=== PATIENT | female | born 1950 | race Caucasian/White ===

== ENCOUNTER 2016-10-23 09:44 | Emergency (ER) | payer MEDICARE, MEDICAID ==
[2016-10-23] MEDS ORDERED: ASPIRIN 81 MG TAB.CHEW PO ONE (10:00)
[2016-10-23 10:25] LABS: Hematocrit 34.7 % (37.0-47.0); Hemoglobin 11.5 gm/dL (12.5-16.0); Mean Cell Volume 83.6 fl (78-100); Mean Corpuscular Hemoglobin 27.7 pg (27-31); Mean Corpuscular Hgb Conc 33.1 g/dl (32-36); Mean Platelet Volume 7.8 fl (6.0-9.5); Platelet Count 155 K/mm3 (150-450); Red Blood Count 4.15 M/mm3 (4.2-5.4); Red Cell Distribution Width 13.8 % (11.5-14.0); White Blood Count 5.4 K/mm3 (4.0-10.5)
--- NOTE | 2016-10-23 10:31 | ERNOTE ---
Chest Pain/Cardiac HPI Date of Service: 10/23/16 Chief Complaint: Chest Pain Time Seen by Provider: 10/23/16 10:23 Source: patient, family Exam Limitations: no limitations Immunizations: IMMUNIZATION HX Immunizations Up to Date No History of Influenza Vaccine No Hx Pneumococcal Vaccination No Allergies/Adverse Reactions: Allergies No Known Allergies Allergy (Verified 10/23/16 10:32) Home Medications: HOME MEDICATIONS Duloxetine HCl [Cymbalta] 90 mg PO DAILY 03/29/13 [Last Taken Unknown] Lisinopril 2.5 mg PO DAILY 03/29/13 [Last Taken Unknown] Omeprazole [Prilosec] 40 mg PO DAILY 03/29/13 [Last Taken Unknown] Atorvastatin Calcium [Lipitor] 20 mg PO DAILY 09/18/15 [Last Taken Unknown] Hydroxychloroquine Sulfate [Plaquenil] 200 mg PO DAILY 09/18/15 [Last Taken Unknown] metFORMIN HCL [Glucophage] 1,000 mg PO BIDWM 09/18/15 [Last Taken Unknown] Citalopram Hydrobromide [Citalopram HBr] 20 mg PO DAILY 03/05/16 [Last Taken Unknown] Cetirizine HCl [Zyrtec] 10 mg PO DAILY 10/23/16 [Last Taken Unknown] Narrative: 66 y/o female to ED with her family for chest pain that began approx an hour ago while she was watching TV. She took 1 ntg SL and the pain was relieved. She has not had any further pain. She reports having palpitations intermittently for the past couple of weeks. She has a history of Afib. She underwent an ablation for this and has had no further documented Afib. She is not anticoagulated. She has been having sinus congestion for several days and has taken an OTC "mucus relief" medication. She had not taken this today. Date (Duration): 10/23/16 Time (Timing): 09:30 Timing: resolved prior to arrival, gone now Severity/Quality: severe Location: substernal Chest Pain Radiation: jaw, back Activities at Onset: rest Modifying Factors - Improves: Present: nitroglycerin Nitro Today/Relief: 0.4 mg x 1, provided at home, complete relief Aspirin Treatment Today: 81 mg x 4, provided by ED Associated Symptoms: Present: headache, diaphoresis, palpitations. Absent: dizziness, syncope, cough, shortness of breath, fever/chills, heartburn, nausea , vomiting, abdominal pain Prior Chest Pain/Cardiac Workup: Reports: prior chest pain, cardiac cath, echocardiogram, stress test. Denies: heart attack Prior Treatment: Denies: recently seen Review of Systems - Review of Systems Constitutional: Present: recent illness. Absent: fever, chills EYE: Present: no symptoms reported ENT: Present: nose congestion. Absent: ear pain, sore throat Respiratory: Absent: shortness of breath, cough Cardiology: Present: chest pain, palpitations. Absent: syncope, edema Gastrointestinal/Abdominal: Absent: nausea, vomiting, abdominal pain Genitourinary: Present: no symptoms reported Musculoskeletal: Absent: muscle pain, neck pain Skin: Absent: rash, lesions Neurological: Present: headache. Absent: dizziness/light-headedness Endocrine: Present: no symptoms reported Hematologic/Lymphatic: Present: no symptoms reported Psych: Absent: anxiety, depressed - Patient's Past Medical History Patient History - Medical: Anxiety, Arthritis, Diabetes Type 2, Depression, Fibromyalgia, GERD, Migraines, Obesity, Rheumatoid Arthritis Patient History - Cardiac/Respiratory: Atrial Fibrillation, Aneurysm, Hypertension, Hyperlipidemia Patient History - Cancer: Skin Patient History - Surgical Procedures: Appendectomy, Cholecystectomy, , EGD - with esophageal dilatation, Hysterectomy, Other - Breast - lumpectomy, Cardiac cath normal 2009 Patient History - Other: None LMP (females 10-50): Menopausal - Family History Mother Family History - Medical: Family History - Cardiac/Respiratory: Aneurysm Father Family History - Medical: Family History - Cardiac/Respiratory: Myocardial Infarction - Social History Living Situations: alone Abuse History: No History of abuse Psych History: No pertinent hx, Hx of Anxiety, Hx of Depression Smoking Status: Never smoker Alcohol Use: none Drug Use: none - Immunizations Immunizations Up to Date: No Hx Pneumococcal Vaccination: No History of Influenza Vaccine: No Physical Exam - Physical Exam General Appearance: Present: wd/wn, alert, no apparent distress Eye Exam: Normal inspection: bilateral Ears, Nose, Throat: Present: normal except -, nasal congestion. Absent: sinus pain/drainage, pharyngeal erythema Neck: Present: normal inspection, nontender, supple Respiratory: Present: no respiratory distress, normal breath sounds, no accessory muscle use, chest nontender, lungs clear Cardiovascular/Chest: Present: normal peripheral pulses, irregularly irregular, systolic murmur Extremity Exam: Present: normal inspection, no edema Neurological Exam: Present: alert, oriented, normal mood/affect, no motor/ sensory deficits Skin Exam: Present: normal color, warm/dry ED Progress - Results and Orders Patient's Lab Results:: I have reviewed the patient's lab results. Results and Orders: Negative repeat troponin - Vital Signs Patient's Vital Signs:: I have reviewed the patient's vital signs. - EKG EKG: NSR EKG read: Interp. by me EKG Comments: 1426 - repeat EKG show SR with sinus arrhythmia, no significant change from initial - X-Ray X-Ray #1 X-Ray: chest Interpretation: Reviewed by me X-ray Comments: Technique: PA and lateral views of the chest are compared to prior dated April 12, 2016 Findings: Diffuse hyperinflation of the lungs bilaterally with flattening of the hemidiaphragm. Scattered calcified granulomas. The lungs are clear bilaterally. There is no consolidation, pleural effusion or pneumothorax. Cardiac silhouette and pulmonary vasculature are normal. The osseous structures demonstrate degenerative changes of the spine and shoulders. IMPRESSION: NO ACUTE CARDIOPULMONARY ABNORMALITY IDENTIFIED. Electronically signed by Gilmer Goodson D.O.. - Progress/Reassessment Progress:: Pain free at discharge Progress Note-Subjective: 10/23/16 12:02 Dr. Erwin contacted regarding admitting to observation for serial troponin/ EKGs, will keep patient in the ED and repeat troponin and EKG 4 hours after the first set per her recommendation. Patient remains asymptomatic. 10/23/16 14:27 Waiting for repeat troponin result, patient denies any further pain. Departure - Departure Clinical Impression: Chest pain of uncertain etiology Disposition: Home Follow Up Needed Condition: Good Instructions: Chest Pain Observation Additional Instructions: Continue your current medications Take nitro and 4 baby aspirin if your pain returns Return to ER if pain returns Contact Dr. Leigh next week for follow up Referrals: Derek Leigh MD [Staff Physician] -
[2016-10-23 10:34] LABS: INR 1.01 INR (0.90-1.10); Partial Thrombolplastin Time 24.4 Seconds (24-32); Prothrombin Time (Patient) 10.5 Seconds (9.4-11.4)
[2016-10-23 10:42] LABS: ALT 44 U/L (19-67); AST 29 U/L (0-48); Albumin * 3.6 gm/dl (3.4-5.0); Alkaline Phosphatase * 60 U/L (50-170); Anion Gap 15.7 mmol/L (6.8-13.8); BUN/Creatinine Ratio 12.9 (9.0-21.6); Bilirubin, Total 0.4 mg/dL (0.0-1.1); Blood Urea Nitrogen 11 mg/dL (3-23); Ca. Corrected For Albumin 8.6 mg/dL (8.4-10.2); Calcium * 8.6 mg/dL (7.9-10.9); Chloride 102 mmol/L (97-106); Glucose * 193 mg/dL (70-110); Potassium 3.7 mmol/L (3.4-4.6); Sodium 142 mmol/L (132-142); Troponin I Less than 0.017 ng/ml (0.00-0.10)
--- OUTSIDE RECORDS SUMMARY | 2016-10-23 11:12 | XMS REPORT | Continuity of Care Document ---
:1950 Author Organization [facility] ([facility]) Address [address] [place] [address] Phone [phone] Care Team Providers Name Role Phone Tanya Srinivasan Primary Care Provider [phone] Source Comments This disclosure is being made pursuant to the Care Everywhere program, applicable federal and state laws, and may not contain all informaitonavailable regarding this patient.[facility] ([facility]) Active Allergies and Adverse Reactions Allergen Noted Date Severity Reactions Comments Codeine Nausea & Vomiting Current Medications Prescription Sig. Disp. Refills Start Date End Date Status DULoxetine (CYMBALTA) 60 Take 60 mg by mouth Active mg capsule daily. omeprazole 20 mg Take 20 mg by mouth Active extended release capsule 2 times daily. diclofenac (VOLTAREN) 1 apply 4 g topically 100 g 2 01/29/2014 Active % topical gel 4 times daily. Indications: OSTEOARTHRITIS hydroxychloroquine 200 Take 1 Tab by mouth 60 Tab 3 07/26/2014 Active mg tablet 2 times daily. Indications: inflammatory osteoarthritis METFORMIN 500 mg tablet 1,000 mg 2 times 1 12/01/2014 Active daily. FLUTICASONE 50 as needed. 12/18/2014 Active mcg/Actuation nasal spray NITROSTAT 0.4 mg SL every 5 minutes as 1 08/20/2015 Active tablet needed. atorvastatin 20 mg Take 20 mg by mouth 3 08/20/2016 Active tablet daily. ESTRACE 0.01 % vaginal INSERT 1 GRAM BY 11 08/21/2016 Active cream VAGINAL ROUTE 2 TIMES PER WEEK glimepiride 1 mg tablet Take 3 mg by mouth 3 3 08/20/2016 Active times daily. lisinopril 2.5 mg tablet Take 2.5 mg by mouth 3 08/20/2016 Active daily. promethazine 25 mg TK 1/2 T PO Q 6 H 0 06/10/2016 Active tablet PRN Active Problems Problem Noted Date S/P ablation of atrial fibrillation 07/31/2016 PONV (postoperative nausea and vomiting) 05/24/2016 PAF (paroxysmal atrial fibrillation) 02/03/2016 Erosive osteoarthritis of hand 01/29/2014 Cataracts, both eyes 05/12/2012 Type II or unspecified type diabetes mellitus without mention of 05/12/2012 complication, not stated as uncontrolled Unspecified sleep apnea 05/20/2008 Dizziness and giddiness 01/30/2008 Pure hypercholesterolemia 12/20/2005 Essential hypertension 12/20/2005 Chest pain, unspecified 12/20/2005 Adjustment disorder with anxiety 06/07/2005 Esophageal reflux 06/07/2005 Hyperlipidemia Palpitation Most Recent Encounters Date Type Specialty Providers Description 08/30/2016 Office Visit [facility], Dx: S/P ablation of MD atrial fibrillation (Primary Dx) 08/10/2016 Office Visit [facility], Chief Comp: Patient MD Reported Reason For Visit 08/03/2016 Office Visit [facility], Dx: PAF ( paroxysmal MD atrial fibrillation) (Primary Dx) Immunizations Name Dates Previously Given Next Due Influenza, unspecified 05/20/2008,06/01/2007 Social History Tobacco Use Types Packs/Day Years Used Date Never Smoker Alcohol Use Drinks/Week oz/Week Comments No Last Filed Vital Signs Vital Sign Reading Time Taken Blood Pressure 144/72 08/30/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 Pulse 83 08/30/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 Temperature 36.7 C (98.1 F) 05/31/2016 12:45 PM CDT Respiratory Rate 14 05/31/2016 7:02 AM CDT Height 1.702 m (5' 7.01") 08/30/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 Weight 76.839 kg (169 lb 6.4 oz) 08/30/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 Body Mass Index 26.53 08/30/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 Oxygen Saturation 95% 05/31/2016 4:31 PM CDT Plan of Care Date Type Specialty Providers Description 11/09/2016 Wait List [facility] Maintenance Due Date Last Done Comments Hepatitis B Vaccine (1 of 3 - 1950 Primary Series) Tdap Vaccine 02/09/1960 DIABETIC: Microalbumin 1967 Td Vaccine 1967 Mammogram 1989 Colonoscopy 1999 DIABETIC: Hemoglobin A1C 11/17/2008 05/20/2008, 01/30/2008, 10/11/2005 Zoster Vaccine 2009 DIABETIC: Cholesterol 04/01/2009 04/01/2008, Additional history exists 06/01/2007, 12/01/2006 Diabetic: Hdl 04/01/2009 04/01/2008, Additional history exists 06/01/2007, 12/01/2006 Diabetic: Ldl 04/01/2009 04/01/2008, Additional history exists 06/01/2007, 12/01/2006 DIABETIC: Triglycerides 04/01/2009 04/01/2008, Additional history exists 06/01/2007, 12/01/2006 DIABETIC: Foot Exam 05/31/2012 DIABETIC: Retinal Eye Exam 05/31/2012 Osteoporosis Screening (DXA 2014 Bone Density) Pneumococcal Vaccine (1 of 2 2014 - PCV13) Influenza Vaccine: Seasonal 03/22/2016 05/20/2008, (#1) 06/01/2007 HCV Screening Completed 01/20/2006 Results from Last 3 Months Not on file
--- OUTSIDE RECORDS SUMMARY | 2016-10-23 11:12 | XMS REPORT | Continuity of Care Document ---
:1950 Author Organization [facility] [place] [address] Care Team Providers Name Role Phone Provider, None Per Patient Primary Care Provider Unavailable Source Comments This disclosure is being made pursuant to the [employer] program and maynot contain all information available regarding this patient.[facility] Active Allergies and Adverse Reactions Not on File Current Medications Be aware that medications may not be up to date as of this document. Alwaysverify current medications with the patient. 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
[2016-10-23] MEDS ORDERED: ASPIRIN 81 MG TAB.CHEW ONE (13:05)
[2016-10-23 14:13] VITALS: BP 148/83
== END 2016-10-23 15:07 | disposition home or self-care (01) ==
LOC: ER 09:44
DX: R07.9 Chest pain, unspecified (principal); K21.9 Gastro-esophageal reflux disease without esophagitis; E11.9 Type 2 diabetes mellitus without complications; I10 Essential (primary) hypertension; M06.9 Rheumatoid arthritis, unspecified; F41.8 Other specified anxiety disorders; E78.5 Hyperlipidemia, unspecified

== ENCOUNTER 2017-05-27 16:40 | Emergency (ER) | payer MEDICAID, MEDICARE ==
[2017-05-27] MEDS ORDERED: ONDANSETRON 4 MG TAB.RAPDIS PO ONE (17:01)
--- NOTE | 2017-05-27 17:02 | ERNOTE ---
Dizziness ER Record Date of Service: 05/27/17 Presenting Symptoms: dizziness Time Seen by Provider: 05/27/17 16:52 Source: patient, RN notes reviewed, old records Exam Limitations: no limitations Immunizations: IMMUNIZATION HX Immunizations Up to Date No History of Influenza Vaccine No Hx Pneumococcal Vaccination No Allergies/Adverse Reactions: Allergies Allergy/AdvReac Type Severity Reaction Status Date / Time No Known Allergies Allergy Verified 05/27/17 16:49 Home Medications: HOME MEDICATIONS Duloxetine HCl [Cymbalta] 90 mg PO DAILY 03/29/13 [Last Taken Unknown] Lisinopril 2.5 mg PO DAILY 03/29/13 [Last Taken Unknown] Omeprazole [Prilosec] 40 mg PO DAILY 03/29/13 [Last Taken Unknown] Atorvastatin Calcium [Lipitor] 20 mg PO DAILY 09/18/15 [Last Taken Unknown] Hydroxychloroquine Sulfate [Plaquenil] 200 mg PO DAILY 09/18/15 [Last Taken Unknown] metFORMIN HCL [Glucophage] 1,000 mg PO BIDWM 09/18/15 [Last Taken Unknown] Citalopram Hydrobromide [Citalopram HBr] 20 mg PO DAILY 03/05/16 [Last Taken Unknown] Apixaban [Eliquis] 5 mg PO BID #60 tablet 05/27/17 [Last Taken Unknown] Meclizine HCl 25 - 50 mg PO Q8H PRN #24 tablet 05/27/17 [Last Taken Unknown] - History of Present Illness Narrative: Florence is a 67 year old female sent to the ED from the walk in clinic for dizziness. This began last evening around the time she was getting ready to go to bed. She also has nausea that is worse with movement. She has vomited once today. She has not had diarrhea today, but has chronic diarrhea that she is seeing gastroenterology for. She also reports a headache. She denies any chest pain or shortness of breath. She took Excedrin earlier today for her headache with some improvement. She also took Meclizine for her dizziness without any change. She states she has had vertigo in the past and that her current symptoms feel different. She has a history of atrial fibrillation and underwent an ablation approximately a year ago. The ablation was successful and she was able to discontinue her anticoagulant. She reports being symptomatic with palpations when she would go in and out of it. She denies any palpations recently. Date (Duration): 05/26/17 Timing and Duration: sudden onset, still present, lasted greater than 3 hrs Noted on awakening:: Yes Associated Symptoms: Present: nausea, vomiting, headache, sense of confusion. Absent: hearing loss, ringing/roaring in ear, ear pain, weakness, numbness, sweating Sense of movement: Present: vague Decreased ability to stand/walk:: Present: off balance Usually:: Present: walks w/o assistance Modifying Factors - (Improves): Reports: other - rest Modifying Factors - (Worsens): Reports: changing position, movement of head Prior Treament: Reports: recently seen, similar symptoms before Review of Systems - Review of Systems Constitutional: Absent: recent illness, fever, chills EYE: Absent: blurred vision, vision changes ENT: Absent: ear pain, nose congestion, sore throat Respiratory: Absent: shortness of breath, cough Cardiology: Absent: chest pain, palpitations, syncope Gastrointestinal/Abdominal: Present: nausea, vomiting. Absent: abdominal pain Genitourinary: Present: no symptoms reported Musculoskeletal: Present: muscle pain, neck pain Skin: Absent: rash, lesions Neurological: Present: headache, dizziness/light-headedness Endocrine: Present: no symptoms reported Hematologic/Lymphatic: Present: no symptoms reported Psych: Present: no symptoms reported - Patient's Past Medical History Patient History - Medical: Anxiety, Arthritis, Diabetes Type 2, Depression, Fibromyalgia, GERD, Migraines, Obesity, Rheumatoid Arthritis Patient History - Cardiac/Respiratory: Atrial Fibrillation, Aneurysm, Hypertension, Hyperlipidemia Patient History - Cancer: Skin Patient History - Surgical Procedures: Appendectomy, Cholecystectomy, , EGD, Hysterectomy, Other - Cardiac ablation Patient History - Other: None LMP (females 10-50): Menopausal - Family History Mother Family History - Medical: Family History - Cardiac/Respiratory: Aneurysm Father Family History - Medical: Family History - Cardiac/Respiratory: Myocardial Infarction - Social History Living Situations: home Abuse History: No History of abuse Psych History: No pertinent hx, Hx of Anxiety, Hx of Depression Smoking Status: Never smoker Alcohol Use: none Drug Use: none - Immunizations Immunizations Up to Date: No Hx Pneumococcal Vaccination: No History of Influenza Vaccine: No Physical Exam - Physical Exam General Appearance: Present: wd/wn, alert, mild distress, anxious Head Exam: Present: normal inspection, no evidence of injury Eye Exam: Normal inspection: bilateral, PERRL: bilateral, EOMI: bilateral Ears, Nose, Throat: Present: normal ENT inspection, normal pharynx Neck: Present: normal inspection, nontender, supple Respiratory: Present: no respiratory distress, normal breath sounds, no accessory muscle use, lungs clear Cardiovascular/Chest: Present: no murmur, normal peripheral pulses, irregularly irregular Peripheral Pulses: N=norm/S=strong/W=weak/B=bound/A=absent: Dorsalis-pedis (R): Normal, Dorsalis-pedis (L): Normal Gastrointestinal/Abdominal: Present: normal bowel sounds, nontender, nondistended, soft Extremity Exam: Present: normal inspection, normal range of motion, no edema Neurological Exam: Present: alert, oriented, normal mood/affect, no motor/ sensory deficits Skin Exam: Present: warm/dry, pallor ED Progress - Results and Orders Patient's Lab Results:: I have reviewed the patient's lab results. - Vital Signs Patient's Vital Signs:: I have reviewed the patient's vital signs. Vital Signs: Vital Signs 05/27/17 05/27/17 16:46 16:51 Temperature 36.2 C L Pulse Rate 74 80 Respiratory 12 12 Rate Blood Pressure 181/98 173/92 O2 Sat by Pulse 95 97 Oximetry - EKG EKG: atrial fibrillation, RBBB, changed from - 10/23/16 EKG read: Reviewed by me EKG Comments: Initial EKG at 1702 showed atrial fib, repeat at 1732 showed sinus rhythm with sinus arrhythmia similar to her previous on 10/23/16 - Progress/Reassessment Chief Complaint: Dizziness Progress:: Improved Progress Note-Subjective: 05/27/17 18:19 Dizziness improved shortly after arrival while patient was sitting up on cart. Zofran given for nausea, which resolved. Monitor showed atrial fib at times, and then sinus arrhythmia at times, and even a brief period of atrial flutter - all in the 70's to 80's. Dizziness again became worse with ambulation to the restroom during which the patient remained in sinus rhythm. Orthostatics were not diagnostic, with her blood pressure dropping but her heart rate remaining in the 70's and 80's. Her dizziness during the procedure was the worst when she was supine. Cold caloric test positive on the right with a rapid onset of severe vertigo and nystagmus was observed. Meclizine ordered. Remains in sinus rhythm with HR of 73 currently. 05/27/17 19:09 Dizziness improved with Meclizine. Cardiology at [facility] contacted regarding intermittent atrial fib/flutter, recommended starting Eliquis or Coumadin. Rx for Eliquis as this is what the patient was taking in the past. Patient agreeable to contacting Dr. Marquez on Tuesday for f/u of her a fib. Her vertigo resolved spontaneously after a few days when she experienced it in the past. Discussed f/u with her PCP if it persists as she may need vestibular rehab. Departure Clinical Impression: Atrial fib/flutter, transient, Vertigo - Departure Disposition: Home Follow Up Needed Condition: Good Instructions: Vertigo, [id number], Atrial Fibrillation, [id number] Additional Instructions: Contact Dr. Marquez on Tuesday for follow up If vertigo has not improved, see Dr. Leigh - you may need physical therapy Return to ER if symptoms worsen Referrals: Derek Leigh MD [Primary Care Provider] - Prescriptions: Apixaban [Eliquis] 5 mg PO BID #60 tablet Meclizine HCl 25 - 50 mg PO Q8H PRN #24 tablet PRN Reason: Vertigo
[2017-05-27] MEDS ORDERED: ONDANSETRON 4 MG TAB.RAPDIS ONE (17:09)
[2017-05-27 17:15] LABS: Hematocrit 36.1 % (37.0-47.0); Hemoglobin 11.9 gm/dL (12.5-16.0); Mean Corpuscular Hemoglobin 27.4 pg (27-31); Neutrophil # 3.3 K/mm3 (1.3-6.0); Platelet Count 192 K/mm3 (150-450); Red Blood Count 4.35 M/mm3 (4.2-5.4); Red Cell Distribution Width 12.4 % (11.5-14.0); White Blood Count 6.9 K/mm3 (4.0-10.5)
[2017-05-27 17:37] LABS: ALT 56 U/L (19-67); AST 39 U/L (0-48); Albumin * 3.9 gm/dl (3.4-5.0); Alkaline Phosphatase * 74 U/L (50-170); Anion Gap 13.5 mmol/L (6.8-13.8); BUN/Creatinine Ratio 14.3 (9.0-21.6); Bilirubin, Total 0.6 mg/dL (0.0-1.1); Blood Urea Nitrogen 10 mg/dL (3-23); Ca. Corrected For Albumin 8.4 mg/dL (8.4-10.2); Calcium * 8.6 mg/dL (7.9-10.9); Carbon Dioxide 28.8 mmol/L (24-32.6); Chloride 101 mmol/L (97-106); Glucose * 118 mg/dL (70-110); Potassium 4.3 mmol/L (3.4-4.6); Sodium 139 mmol/L (132-142); Total Protein 7.5 gm/dL (6.2-8.2); Troponin I Less than 0.017 ng/ml (0.00-0.10)
[2017-05-27] MEDS ORDERED: MECLIZINE HCL 25 MG TABLET PO ONE (18:07)
[2017-05-27 18:12] LABS: Urine Bilirubin Negative (NEGATIVE); Urine Blood Negative /ul (NEGATIVE); Urine Ketone Negative (NEGATIVE); Urine Nitrite Negative (NEGATIVE); Urine Protein 30 mg/dL (NEGATIVE); Urine Urobilinogen Normal (NORMAL)
[2017-05-27] MEDS ORDERED: MECLIZINE HCL 25 MG TABLET ONE (18:12)
[2017-05-27 18:42] LABS: Urine Appearance Clear; Urine Bacteria None Seen; Urine Color Yellow; Urine RBC None Seen /hpf (0-5); Urine WBC TRACE /hpf (0-5)
[2017-05-27 19:21] VITALS: BP 154/85
== END 2017-05-27 19:12 | disposition home or self-care (01) ==
LOC: ER 16:40
DX: I48.91 Unspecified atrial fibrillation (principal); R42 Dizziness and giddiness; M19.90 Unspecified osteoarthritis, unspecified site; E11.9 Type 2 diabetes mellitus without complications; M79.7 Fibromyalgia; Z79.01 Long term (current) use of anticoagulants; I10 Essential (primary) hypertension; E78.5 Hyperlipidemia, unspecified; Z85.828 Personal history of other malignant neoplasm of skin

== ENCOUNTER 2017-05-30 13:36 | Observation (INO) | payer MEDICARE ==
[2017-05-30] MEDS ORDERED: SUCRALFATE 1 G/10 ML UDC PO ONE (13:58)
[2017-05-30] MEDS ORDERED: LIDOCAINE HCL 20 ML UDC PO ONE (13:58)
[2017-05-30] MEDS ORDERED: MAG HYDROX/ALUMINUM HYD/SIMETH 30 ML UDC PO ONE (13:58)
[2017-05-30] MEDS ORDERED: ASPIRIN 81 MG TAB.CHEW PO ONE (13:59)
[2017-05-30 14:04] LABS: Hematocrit 35.2 % (37.0-47.0); Hemoglobin 11.8 gm/dL (12.5-16.0); Mean Cell Volume 82.8 fl (78-100); Mean Corpuscular Hemoglobin 27.8 pg (27-31); Mean Corpuscular Hgb Conc 33.5 g/dl (32-36); Mean Platelet Volume 8.1 fl (6.0-9.5); Neutrophil # 3.9 K/mm3 (1.3-6.0); Neutrophil % 50.7 % (42-75.0); Platelet Count 192 K/mm3 (150-450); Red Blood Count 4.25 M/mm3 (4.2-5.4); Red Cell Distribution Width 12.8 % (11.5-14.0); White Blood Count 7.8 K/mm3 (4.0-10.5)
[2017-05-30] MEDS ORDERED: ASPIRIN 81 MG TAB.CHEW ONE (14:06)
[2017-05-30 14:13] LABS: Prothrombin Time (Patient) 10.2 Seconds (9.4-11.4)
[2017-05-30 14:15] LABS: INR 0.98 INR (0.90-1.10); Partial Thrombolplastin Time 25.6 Seconds (24-32)
[2017-05-30 14:23] LABS: ALT 50 U/L (19-67); AST 29 U/L (0-48); Albumin * 3.9 gm/dl (3.4-5.0); Alkaline Phosphatase * 72 U/L (50-170); Anion Gap 13.9 mmol/L (6.8-13.8); BUN/Creatinine Ratio 14.9 (9.0-21.6); Bilirubin, Total 0.5 mg/dL (0.0-1.1); Blood Urea Nitrogen 13 mg/dL (3-23); Ca. Corrected For Albumin 8.4 mg/dL (8.4-10.2); Calcium * 8.6 mg/dL (7.9-10.9); Carbon Dioxide 29.2 mmol/L (24-32.6); Chloride 102 mmol/L (97-106); Glucose * 122 mg/dL (70-110); Potassium 4.1 mmol/L (3.4-4.6); Sodium 141 mmol/L (132-142); Total Protein 7.4 gm/dL (6.2-8.2); Troponin I Less than 0.017 ng/ml (0.00-0.10)
[2017-05-30] MEDS ORDERED: NITROGLYCERIN 0.4 MG/TAB BTL SL ONE (14:36)
--- NOTE | 2017-05-30 14:43 | ERNOTE ---
Chest Pain/Cardiac HPI Date of Service: 05/30/17 Chief Complaint: Chest Pain Time Seen by Provider: 05/30/17 13:38 Source: patient Exam Limitations: no limitations Immunizations: IMMUNIZATION HX Immunizations Up to Date Yes History of Influenza Vaccine No Hx Pneumococcal Vaccination No Allergies/Adverse Reactions: Allergies No Known Allergies Allergy (Verified 05/30/17 13:54) Home Medications: HOME MEDICATIONS Duloxetine HCl [Cymbalta] 90 mg PO DAILY 03/29/13 [Last Taken Unknown] Lisinopril 2.5 mg PO DAILY 03/29/13 [Last Taken Unknown] Omeprazole [Prilosec] 40 mg PO DAILY 03/29/13 [Last Taken Unknown] Atorvastatin Calcium [Lipitor] 20 mg PO DAILY 09/18/15 [Last Taken Unknown] Hydroxychloroquine Sulfate [Plaquenil] 200 mg PO DAILY 09/18/15 [Last Taken Unknown] metFORMIN HCL [Glucophage] 1,000 mg PO BIDWM 09/18/15 [Last Taken Unknown] Citalopram Hydrobromide [Citalopram HBr] 20 mg PO DAILY 03/05/16 [Last Taken Unknown] Apixaban [Eliquis] 5 mg PO BID #60 tablet 05/27/17 [Last Taken Unknown] Meclizine HCl 25 - 50 mg PO Q8H PRN #24 tablet 05/27/17 [Last Taken Unknown] Narrative: Pt. comes in with c/o chest pressure for approximately 40 minutes that started as chest pain for 5 minutes that radiated up to her throat and into her back. Pt. denies any palpitations but does have a history of afib and recent history of virtigo. Pt. states that vertigo is improved but has not resolved. Pt. states that she was told on Tuesday that she was in A-fib and was told that was the reason for her vertigo. Review of Systems - Review of Systems Constitutional: Present: recent illness. Absent: fever, chills, weakness, fatigue, malaise EYE: Present: no symptoms reported ENT: Present: no symptoms reported Respiratory: Present: no symptoms reported. Absent: shortness of breath, cough , wheezing Cardiology: Present: chest pain. Absent: palpitations, edema Gastrointestinal/Abdominal: Present: no symptoms reported. Absent: nausea, vomiting, diarrhea Genitourinary: Present: no symptoms reported Musculoskeletal: Present: no symptoms reported. Absent: back pain, joint pain Skin: Present: no symptoms reported. Absent: rash, change in color Neurological: Present: no symptoms reported. Absent: headache, dizziness/light- headedness, numbness, tingling All Other Systems: All systems neg except as marked - Patient's Past Medical History Patient History - Medical: Anxiety, Arthritis, Diabetes Type 2, Depression, Fibromyalgia, GERD, Migraines, Obesity, Rheumatoid Arthritis Patient History - Cardiac/Respiratory: Atrial Fibrillation, Aneurysm, Hypertension, Hyperlipidemia Patient History - Cancer: Skin Patient History - Surgical Procedures: Appendectomy, Cholecystectomy, , EGD, Hysterectomy, Other Patient History - Other: None - Family History Mother Family History - Medical: Family History - Cardiac/Respiratory: Aneurysm Father Family History - Medical: Family History - Cardiac/Respiratory: Myocardial Infarction - Social History Living Situations: other Abuse History: No History of abuse Psych History: No pertinent hx, Hx of Anxiety, Hx of Depression Smoking Status: Never smoker Do you dip or chew tobacco: No Alcohol Use: none Drug Use: none - Immunizations Immunizations Up to Date: Yes Hx Pneumococcal Vaccination: No History of Influenza Vaccine: No Physical Exam - Physical Exam General Appearance: Present: wd/wn, alert, no apparent distress Head Exam: Present: normal inspection, no evidence of injury Eye Exam: Normal inspection: bilateral, PERRL: bilateral, EOMI: bilateral Ears, Nose, Throat: Present: normal ENT inspection, normal pharynx Neck: Present: normal inspection, nontender. Absent: lymphadenopathy (R), lymphadenopathy (L) Respiratory: Present: no respiratory distress, normal breath sounds, no accessory muscle use, chest nontender, lungs clear Cardiovascular/Chest: Present: regular rate, rhythm, no murmur, normal peripheral pulses Gastrointestinal/Abdominal: Present: normal bowel sounds Back Exam: Present: normal inspection Extremity Exam: Present: normal inspection, non-tender, normal range of motion, no edema Neurological Exam: Present: alert, oriented, normal mood/affect, no motor/ sensory deficits, child care specialist II-XII nml as tested, normal cerebellar test Skin Exam: Present: normal color, warm/dry. Absent: pallor, skin rash ED Progress - Date and Time Seen: Date and Time: Pain resolved with Nitro and calcified vessels noted likely CAD. 05/30/17 15:[address] Leigh and he agrees to admit for rule out chest pain. 05/30/17 15:36 - Results and Orders Patient's Lab Results:: I have reviewed the patient's lab results. - Vital Signs Patient's Vital Signs:: I have reviewed the patient's vital signs. Vital Signs: Vital Signs 05/30/17 05/30/17 05/30/17 13:44 14:07 14:24 Temperature 36.8 C Pulse Rate 76 82 70 Respiratory 11 L 11 L 12 Rate Blood Pressure 179/88 169/76 157/78 O2 Sat by Pulse 98 97 98 Oximetry - EKG EKG: other - SP with PAC no acute EKG read: Reviewed by me EKG Comments: inerp by Dr Key - X-Ray X-Ray #1 X-Ray: chest Interpretation: Reviewed by me X-ray Comments: Calcified vessels noted. Pulmonary vascular congestion, hyperinflation. - Progress/Reassessment Chief Complaint: Chest Pain Progress:: Improved Departure Clinical Impression: Chest pain of uncertain etiology - Departure Disposition: [facility] Condition: Fair
--- NOTE | 2017-05-30 16:50 | HP ---
Chief Complaint - Chief Complaint Date of Service: 05/30/17 Time of Service: 16:42 Chief Complaint: chest pain History of Present Illness: Florence Nino, is a 67-year-old white female, with previous medical history of diabetes mellitus type 2, essential hypertension, obstructive sleep apnea, anxiety and depression, abdominal aortic aneurysm, who was admitted on 2016 because of chest pain. About 40 minutes prior to admission, the patient was in the grocery store when she suddenly experienced a substernal crushing chest pain, 10 over 10, which radiated to her neck and to her back. She told her daughter that they were were going to the hospital and as they were driving , about 5 minutes later, her chest pain resolved. She, however, continued to have dull pressure on her chest and so they continued drive to the emergency room. Her EKG showed normal sinus rhythm with sinus arrythmia and her first set of troponin was within normal limits. Her CXR showed bronchitis/reactive airway disease, coronary clacification. Her chest pain disappeared when they gave her nitroglycerin in the emergency room. She was then admitted for observation under our chest pain protocol. - Patient's Past Medical History Patient History - Medical: Anxiety, Arthritis, Diabetes Type 2, Depression, Fibromyalgia, GERD, Migraines, Obesity, Rheumatoid Arthritis Patient History - Cardiac/Respiratory: Atrial Fibrillation, Aneurysm, Hypertension, Hyperlipidemia Patient History - Cancer: Skin Patient History - Surgical Procedures: Appendectomy, Cholecystectomy, , EGD, Hysterectomy, Other Patient History - Other: None - Family History Mother Family History - Medical: Family History - Cardiac/Respiratory: Aneurysm Father Family History - Medical: Family History - Cardiac/Respiratory: Myocardial Infarction - Social History Living Situations: home Abuse History: No History of abuse Psych History: No pertinent hx, Hx of Anxiety, Hx of Depression Smoking Status: Never smoker Have you smoked in the past 12 months: No Do you dip or chew tobacco: No Patient requests Smoking Cessation Consult: No Initiate information on Smoking Cessation: No Alcohol Use: none Drug Use: none - Immunizations Immunizations Up to Date: Yes Hx Pneumococcal Vaccination: No History of Influenza Vaccine: No Review Of Systems (GEN) - Review of Systems Generalized/Overall Review: Absent: Weakness, Chills, Fever EENTM: Present: No Symptoms Reported Respiratory: Absent: Cough, Shortness of Breath, Orthopnea Cardiac: Present: Chest Pain. Absent: Edema, Palpitations Abdominal: Present: Nausea. Absent: Vomiting Genitourinary: Absent: Urgency, Frequency Musculoskeletal: Present: Joint Pain Immunizations: IMMUNIZATION HX Immunizations Up to Date Yes History of Influenza Vaccine No Hx Pneumococcal Vaccination No Allergies/Adverse Reactions: Allergies Allergy/AdvReac Type Severity Reaction Status Date / Time No Known Allergies Allergy Verified 05/30/17 15:50 Home Medications: HOME MEDICATIONS Duloxetine HCl [Cymbalta] 90 mg PO DAILY 03/29/13 [Last Taken Unknown] Lisinopril 2.5 mg PO DAILY 03/29/13 [Last Taken Unknown] Omeprazole [Prilosec] 40 mg PO DAILY 03/29/13 [Last Taken Unknown] Atorvastatin Calcium [Lipitor] 20 mg PO DAILY 09/18/15 [Last Taken Unknown] Hydroxychloroquine Sulfate [Plaquenil] 200 mg PO DAILY 09/18/15 [Last Taken Unknown] metFORMIN HCL [Glucophage] 1,000 mg PO BIDWM 09/18/15 [Last Taken Unknown] Citalopram Hydrobromide [Citalopram HBr] 20 mg PO DAILY 03/05/16 [Last Taken Unknown] Apixaban [Eliquis] 5 mg PO BID #60 tablet 05/27/17 [Last Taken Unknown] Meclizine HCl 25 - 50 mg PO Q8H PRN #24 tablet 05/27/17 [Last Taken Unknown] Exam - Exam Vital Signs: Vital Signs - Last Taken Temp 36.6 C 05/30/17 15:46 Pulse 71 05/30/17 15:46 Resp 18 05/30/17 15:46 BP 166/96 05/30/17 15:46 Pulse Ox 97 05/30/17 15:46 Constitutional: Present: Alert, Cooperative ENT Exam: Present: hearing grossly normal Eye Exam: bilateral eye: normal inspection, PERRL, EOMI Neck: Present: supple Breasts: Present: Exam deferred Respiratory: Present: normal breath sounds, No rales, No wheezing Cardiovascular/Chest: Present: regular rate, rhythm, no JVD, no murmur Abdomen: Present: Normal bowel sounds, soft, nontender, nondistended Extremity: Present: no pedal edema, no calf tenderness Diagnostic Studies: Laboratory Results WBC 7.8 K/mm3 (4.0-10.5) 05/30/17 12:55 RBC 4.25 M/mm3 (4.2-5.4) 05/30/17 12:55 Hgb 11.8 gm/dL (12.5-16.0) L 05/30/17 12:55 Hct 35.2 % (37.0-47.0) L 05/30/17 12:55 MCV 82.8 fl (78-100) 05/30/17 12:55 MCH 27.8 pg (27-31) 05/30/17 12:55 MCHC 33.5 g/dl (32-36) 05/30/17 12:55 RDW 12.8 % (11.5-14.0) 05/30/17 12:55 Plt Count 192 K/mm3 (150-450) 05/30/17 12:55 MPV 8.1 fl (6.0-9.5) 05/30/17 12:55 Immature Gran % (Auto) 0.60 % (0.001-0.429) H 05/30/17 12:55 Immature Gran # (Auto) 0.05 K/mm3 (0.000-0.0310) H 05/30/17 12:55 Neutrophils % 50.7 % (42-75.0) 05/30/17 12:55 Lymphocytes % 38.5 % (20-51) 05/30/17 12:55 Monocytes % 6.5 % (0.0-9) 05/30/17 12:55 Eosinophils % 3.1 % (0.0-3.0) H 05/30/17 12:55 Basophils % 0.6 % (0.0-1.0) 05/30/17 12:55 Nucleated RBC % 0.0 k/mm3 (0-1) 05/30/17 12:55 Neutrophils # 3.9 K/mm3 (1.3-6.0) 05/30/17 12:55 Lymphocytes # 3.0 k/mm3 (1.5-3.5) 05/30/17 12:55 Monocytes # 0.5 k/mm3 (0.0-1.0) 05/30/17 12:55 Eosinophils # 0.2 k/mm3 (0.0-0.7) 05/30/17 12:55 Absolute Basophils 0.1 k/mm3 (0.0-0.1) 05/30/17 12:55 PT 10.2 Seconds (9.4-11.4) 05/30/17 12:55 INR (Anticoag Therapy) 0.98 INR (0.90-1.10) 05/30/17 12:55 PTT ([place]) 25.6 Seconds (24-32) 05/30/17 12:55 Sodium 141 mmol/L (132-142) 05/30/17 12:55 Plasma Sodium 141 mmol/L (130-142) 05/30/17 12:55 Potassium 4.1 mmol/L (3.4-4.6) 05/30/17 12:55 Chloride 102 mmol/L (97-106) 05/30/17 12:55 Carbon Dioxide 29.2 mmol/L (24-32.6) 05/30/17 12:55 Anion Gap 13.9 mmol/L (6.8-13.8) H 05/30/17 12:55 BUN 13 mg/dL (3-23) 05/30/17 12:55 Creatinine 0.87 mg/dL (0.4-1.4) 05/30/17 12:55 Est GFR (Non-Af Amer) 69 mL/min (60-130) D 05/30/17 12:55 BUN/Creatinine Ratio 14.9 (9.0-21.6) 05/30/17 12:55 Random Glucose 122 mg/dL (70-110) H 05/30/17 12:55 Calcium 8.6 mg/dL (7.9-10.9) 05/30/17 12:55 Calcium Adj for Albumin 8.4 mg/dL (8.4-10.2) 05/30/17 12:55 Total Bilirubin 0.5 mg/dL (0.0-1.1) 05/30/17 12:55 AST 29 U/L (0-48) 05/30/17 12:55 ALT 50 U/L (19-67) 05/30/17 12:55 Alkaline Phosphatase 72 U/L (50-170) 05/30/17 12:55 Troponin I Less than 0.017 ng/ml (0.00-0.10) 05/30/17 12:55 Total Protein 7.4 gm/dL (6.2-8.2) 05/30/17 12:55 Albumin 3.9 gm/dl (3.4-5.0) 05/30/17 12:55 Assessment/Plan - Assessment/Plan (1) Chest pain, rule out acute myocardial infarction Assessment: r/o ACS. will do serial EKG and enzyme studies and will schedule a nuclear pharmacologic stress test in the morning because of her risk factors and calcifications of er aorta. Problem: Acute (2) Depression Assessment: will continue with home medications Problem: Chronic (3) Diabetes mellitus Assessment: will continue with home medications Problem: Chronic (4) GERD (gastroesophageal reflux disease) Assessment: will continue with home medications Problem: Chronic (5) HLD (hyperlipidemia) Assessment: will continue with home medications Problem: Chronic (6) HTN (hypertension) Assessment: will continue home medications Problem: Chronic Qualifiers: Hypertension type: essential hypertension Qualified Code(s): I10 - Essential (primary) hypertension
[2017-05-30] MEDS: APIXABAN 2.5 MG TABLET PO SCH (20:29)
[2017-05-30] MEDS ORDERED: ROSUVASTATIN CALCIUM 10 MG TABLET PO SCH (21:00)
[2017-05-31] MEDS ORDERED: PANTOPRAZOLE SODIUM 40 MG TABLET.EC PO SCH (07:00)
[2017-05-31] MEDS ORDERED: CITALOPRAM HYDROBROMIDE 20 MG TABLET PO SCH (09:00)
[2017-05-31] MEDS ORDERED: HYDROXYCHLOROQUINE SULFATE 200 MG TABLET PO SCH (09:00)
[2017-05-31] MEDS: APIXABAN 2.5 MG TABLET PO SCH (09:00)
[2017-05-31] MEDS ORDERED: DULoxetine HCL 30 MG CAPSULE.SA PO SCH (09:00)
[2017-05-31] MEDS ORDERED: LISINOPRIL 2.5 MG TABLET PO SCH (09:00)
[2017-05-31] MEDS ORDERED: ENALAPRILAT DIHYDRATE 1.25 MG/ML VIAL IV ONE ×2 (09:07→12:11)
[2017-05-31] MEDS ORDERED: Regadenoson 0.1 MG UNIT IV ONE (10:45)
[2017-05-31] MEDS ORDERED: Regadenoson 0.08 MG/ML SYRG IV ONE (10:45)
[2017-05-31] MEDS ORDERED: ACETAMINOPHEN 325 MG TABLET PO PRN (12:12)
[2017-05-31 14:48] VITALS: BP 148/96
--- NOTE | 2017-05-31 15:59 | DS ---
(1) Chest pain, rule out acute myocardial infarction Diagnosis(s): AMI rukled out. Stress test showed no reversible ischemia or infarct. Problem: Acute (2) Depression Problem: Chronic (3) Diabetes mellitus Problem: Chronic (4) GERD (gastroesophageal reflux disease) Problem: Chronic (5) HLD (hyperlipidemia) Problem: Chronic (6) HTN (hypertension) Problem: Chronic Qualifiers: Hypertension type: essential hypertension Qualified Code(s): I10 - Essential (primary) hypertension Description of Stay: Florence Nino, is a 67-year-old white female, with previous medical history of diabetes mellitus type 2, essential hypertension, obstructive sleep apnea, anxiety and depression, abdominal aortic aneurysm, who was admitted on 2016 because of chest pain. About 40 minutes prior to admission, the patient was in the grocery store when she suddenly experienced a substernal crushing chest pain, 10 over 10, which radiated to her neck and to her back. She told her daughter that they were were going to the hospital and as they were driving , about 5 minutes later, her chest pain resolved. She, however, continued to have dull pressure on her chest and so they continued drive to the emergency room. Her EKG showed normal sinus rhythm with sinus arrythmia and her first set of troponin was within normal limits. Her CXR showed bronchitis/reactive airway disease, coronary clacification. Her chest pain disappeared when they gave her nitroglycerin in the emergency room. She was then admitted for observation under our chest pain protocol. Her repeat EKG and troponin were WNL. She had a nuclear pharmacologic stress test and it showed no reversible myocardial ischemia or infarct. She has been CP free since admission. She is stable to go home and will see patient in 2 weeks. Procedures Performed: none Discharge Disposition: Home self care Disposition: Home self-care Condition: Good Discharge Activity: Activity as tolerated Discharge Diet: Consistent carbs Referrals: Derek Leigh MD [Primary Care Provider] - Additional Patient Instructions (free text): Please makeTCM appointment at discharge, if applicable. Thank you! Mary @ [phone]. Follow up with PCP in 2 weeks. Prescriptions (Any new or edited meds): Acetaminophen [Tylenol] 650 mg PO Q6H PRN #30 tablet PRN Reason: Mild Pain Metoprolol Succinate [Toprol Xl] 50 mg PO DAILY #30 tab Complete Home Medications List: Complete Home Medication List: Duloxetine HCl [Cymbalta] 90 mg PO DAILY 03/29/13 Lisinopril 2.5 mg PO DAILY 03/29/13 Omeprazole [Prilosec] 40 mg PO DAILY 03/29/13 Atorvastatin Calcium [Lipitor] 20 mg PO DAILY 09/18/15 Hydroxychloroquine Sulfate [Plaquenil] 200 mg PO DAILY 09/18/15 metFORMIN HCL [Glucophage] 1,000 mg PO BIDWM 09/18/15 Citalopram Hydrobromide [Citalopram HBr] 20 mg PO DAILY 03/05/16 Apixaban [Eliquis] 5 mg PO BID #60 tablet 05/27/17 Meclizine HCl 25 - 50 mg PO Q8H PRN #24 tablet 05/27/17 Acetaminophen [Tylenol] 650 mg PO Q6H PRN #30 tablet 05/31/17 Metoprolol Succinate [Toprol Xl] 50 mg PO DAILY #30 tab 05/31/17
== END 2017-05-31 17:02 | disposition home or self-care (01) ==
LOC: ER 13:36 → MS 15:14
PROVIDERS: ADMIT Internal Medicine; ATTEND Internal Medicine
DX: R07.89 Other chest pain (principal); I10 Essential (primary) hypertension; E11.9 Type 2 diabetes mellitus without complications; F41.8 Other specified anxiety disorders; E78.5 Hyperlipidemia, unspecified; K21.9 Gastro-esophageal reflux disease without esophagitis; M06.9 Rheumatoid arthritis, unspecified; I71.4 Abdominal aortic aneurysm, without rupture; E66.9 Obesity, unspecified; Z68.25 Body mass index [BMI] 25.0-25.9, adult
CPT/HCPCS: 36415; 71020; 78452; 80053; 84484; 85025; 85610; 85730; 93005; 93017; 94660; 96374; 96376; 99285; A9502; G0378

== ENCOUNTER 2017-09-15 02:33 | Emergency (ER) | payer MEDICARE, MEDICAID ==
[2017-09-15] MEDS ORDERED: ONDANSETRON 4 MG TAB.RAPDIS ONE ×2 (02:41→03:35)
[2017-09-15] MEDS ORDERED: ONDANSETRON 4 MG TAB.RAPDIS PO ONE ×2 (02:41→03:31)
--- NOTE | 2017-09-15 02:47 | ERNOTE ---
Abdominal HPI - General Time Seen by Provider: 09/15/17 02:33 Source: patient Exam Limitations: no limitations - Immun/Allergies/Home Medications Immunizatons: IMMUNIZATION HX Immunizations Up to Date Yes History of Influenza Vaccine Yes Hx Pneumococcal Vaccination Yes Allergies/Adverse Reactions: Allergies No Known Allergies Allergy (Verified 05/30/17 15:50) Home Medications: HOME MEDICATIONS Duloxetine HCl [Cymbalta] 90 mg PO DAILY 03/29/13 [Last Taken Unknown] Lisinopril 2.5 mg PO DAILY 03/29/13 [Last Taken Unknown] Omeprazole [Prilosec] 20 mg PO BID 03/29/13 [Last Taken Unknown] Atorvastatin Calcium [Lipitor] 20 mg PO DAILY 09/18/15 [Last Taken Unknown] Hydroxychloroquine Sulfate [Plaquenil] 200 mg PO DAILY 09/18/15 [Last Taken Unknown] metFORMIN HCL [Glucophage] 1,000 mg PO BIDWM 09/18/15 [Last Taken Unknown] Acetaminophen [Tylenol] 650 mg PO Q6H PRN #30 tablet 05/31/17 [Last Taken Unknown] Gabapentin 100 mg PO HS 09/15/17 [Last Taken Unknown] Glimepiride 1 mg PO DAILY 09/15/17 [Last Taken Unknown] Metoprolol Succinate [Toprol Xl] 25 mg PO DAILY 09/15/17 [Last Taken Unknown] Promethazine HCl 12.5 mg PO QID PRN 09/15/17 [Last Taken Unknown] Sucralfate [Carafate] 1 gm PO BID 09/15/17 [Last Taken Unknown] - History of Present Illness Narrative: Patient started to have non stop vomiting and diarrhea about three hours ago, no sick exposure, no suspicious food. She denies any abdominal pain, no vomiting since EMS arrived, no other symptoms Date (Duration): 09/14/17 Time (Timing): 23:00 Timing: resolved prior to arrival Activities at Onset: none Associated Symptoms: Absent: headache, back pain, chest pain, neck pain, diarrhea-gross blood Prior Abdominal Problems: Present: none Review of Systems - Review of Systems Constitutional: Absent: recent illness, fever, chills, malaise ENT: Absent: nose congestion, sore throat Respiratory: Absent: shortness of breath Cardiology: Absent: chest pain Gastrointestinal/Abdominal: Present: See HPI, nausea, vomiting, diarrhea. Absent: abdominal pain Genitourinary: Present: See HPI Musculoskeletal: Absent: back pain Neurological: Absent: headache, weakness, numbness - Patient's Past Medical History Patient History - Medical: Anxiety, Arthritis, Diabetes Type 2, Depression, Fibromyalgia, GERD, Migraines, Obesity, Rheumatoid Arthritis Patient History - Cardiac/Respiratory: Atrial Fibrillation, Aneurysm, Hypertension, Hyperlipidemia Patient History - Cancer: Skin Patient History - Surgical Procedures: Appendectomy, Cholecystectomy, , EGD, Hysterectomy, Other Patient History - Other: None - Family History Mother Family History - Medical: Family History - Cardiac/Respiratory: Aneurysm Father Family History - Medical: Family History - Cardiac/Respiratory: Myocardial Infarction - Social History Living Situations: other Abuse History: No History of abuse Psych History: No pertinent hx, Hx of Anxiety, Hx of Depression Smoking Status: Never smoker Have you smoked in the past 12 months: No Do you dip or chew tobacco: No Alcohol Use: none Drug Use: none - Immunizations Immunizations Up to Date: Yes Hx Pneumococcal Vaccination: Yes History of Influenza Vaccine: Yes Physical Exam - Physical Exam General Appearance: Present: wd/wn, alert, no apparent distress, anxious Head Exam: Present: normal inspection Ears, Nose, Throat: Present: normal pharynx Respiratory: Present: no respiratory distress, normal breath sounds, lungs clear Cardiovascular/Chest: Present: regular rate, rhythm, no murmur Gastrointestinal/Abdominal: Present: normal bowel sounds, nontender, nondistended, soft Extremity Exam: Present: no edema Neurological Exam: Present: alert, oriented, normal mood/affect Skin Exam: Present: normal color, warm/dry ED Progress - Vital Signs Patient's Vital Signs:: I have reviewed the patient's vital signs. Vital Signs: Vital Signs 09/15/17 02:34 Temperature 35.9 C L Pulse Rate 76 Respiratory 20 Rate Blood Pressure 181/60 O2 Sat by Pulse 99 Oximetry - Progress/Reassessment Progress Note-Subjective: 09/15/17 03:32 patient comfortable, no vomiting, tolerated ice chips, ready to go home Departure Clinical Impression: Acute gastroenteritis - Departure Disposition: Home self-care Condition: Good Instructions: Viral Gastroenteritis, Adult, [id number], Food Choices to Help Relieve Diarrhea, Adult Referrals: Derek Leigh MD [Primary Care Provider] -
[2017-09-15 03:27] VITALS: BP 167/88
== END 2017-09-15 03:40 | disposition home or self-care (01) ==
LOC: ER 02:33
DX: E78.5 Hyperlipidemia, unspecified; Z85.828 Personal history of other malignant neoplasm of skin; K52.9 Noninfective gastroenteritis and colitis, unspecified; E11.9 Type 2 diabetes mellitus without complications; M19.90 Unspecified osteoarthritis, unspecified site; K21.9 Gastro-esophageal reflux disease without esophagitis; F41.8 Other specified anxiety disorders; M79.7 Fibromyalgia; I10 Essential (primary) hypertension; Z79.01 Long term (current) use of anticoagulants; I48.91 Unspecified atrial fibrillation